=== PATIENT | male | born 1995 | race Asian ===

== ENCOUNTER 2020-04-01 17:00 | Emergency (ER) | payer OTHER ==
[~2020-04-01] VITALS: Ht 188 cm; Wt 90.9 kg
[2020-04-01 17:11] VITALS: BP 131/60; TEMP 98.9
== END 2020-04-01 18:20 | disposition home or self-care (01) ==
LOC: ED 17:00
DX: S29.012A Strain of muscle and tendon of back wall of thorax, initial encounter (principal); V49.50XA Passenger injured in collision with unspecified motor vehicles in traffic accident, initial encounter; Y92.89 Other specified places as the place of occurrence of the external cause
CPT/HCPCS: 99283